=== PATIENT | female | born 1955 | race Caucasian/White ===

== ENCOUNTER 2020-03-11 06:01 | Day surgery (SDC) | payer OTHER ==
[~2020-03-11] VITALS: Ht 157.5 cm; Wt 82.7 kg
[~2020-03-11 06:01] MED LIST: CYCLOPENTOLATE HCL 1% 2 ML OPHTHALMIC SOLUTION ONE; KETOROLAC TROMETHAMINE 0.5% 5 ML OPHTHALMIC SOLUTION ONE; MOXIFLOXACIN HCL 0.5% 3 ML OPHTHALMIC SOLUTION ONE; PHENYLEPHRINE HCL 2.5% 2 ML OPHTHALMIC SOLUTION ONE; RINGERS SOLUTION,LACTATED 500 ML IV ONE; TETRACAINE HCL/PF 0.5% 4 ML OPHTHALMIC SOLUTION OD ONE; TROPICAMIDE 1% 2 ML OPHTHALMIC SOLUTION ONE
[2020-03-11] MEDS ORDERED: FentaNYL CITRATE-PF 100 MCG/2 ML VIAL IVP ONE (06:02)
[2020-03-11] MEDS ORDERED: MIDAZOLAM HCL 2 MG/2 ML VIAL IVP ONE (06:02)
[2020-03-11] MEDS: MOXIFLOXACIN HCL 0.5% 3 ML OPHTHALMIC SOLUTION OD SCH ×3 (06:56→07:11)
[2020-03-11] MEDS: TROPICAMIDE 1% 2 ML OPHTHALMIC SOLUTION OD SCH ×3 (06:56→07:11)
[2020-03-11] MEDS: CYCLOPENTOLATE HCL 1% 2 ML OPHTHALMIC SOLUTION OD SCH ×3 (06:56→07:11)
[2020-03-11] MEDS: PHENYLEPHRINE HCL 2.5% 2 ML OPHTHALMIC SOLUTION OD SCH ×3 (06:56→07:11)
[2020-03-11] MEDS: KETOROLAC TROMETHAMINE 0.5% 5 ML OPHTHALMIC SOLUTION OD SCH ×3 (06:57→07:11)
[2020-03-11] MEDS ORDERED: EPINEPHrine 1:1,000 [1 MG/ML] AMP ONE (06:59)
[2020-03-11] MEDS ORDERED: BALANCED SALT 15 ML OPHTHALMIC IRRIG.SOLN ONE (07:00)
[2020-03-11] MEDS ORDERED: LIDOCAINE/PF 1% 2 ML VIAL ONE ×2 (07:00→07:31)
[2020-03-11] MEDS ORDERED: POVIDONE-IODINE 10% 15 ML SOLUTION UD ONE (07:00)
[2020-03-11] MEDS ORDERED: LOSA50TA37 PO (07:02)
[2020-03-11] MEDS ORDERED: CALC-789 PO (07:02)
[2020-03-11] MEDS ORDERED: ASPI-1111 PO (07:02)
[2020-03-11] MEDS ORDERED: HYDR-1475 PO (07:02)
[2020-03-11] MEDS ORDERED: AMLO-258 PO (07:02)
[2020-03-11 07:05] LABS: GLUCOMETER DEV NAME(LOC) SDS.; GLUCOSE,POINT OF CARE 114 MG/DL (70-110)
[2020-03-11] MEDS ORDERED: PrednisoLONE ACETATE 1% 5 ML OPHTHALMIC SUSPENSION ONE (07:08)
[2020-03-11] MEDS ORDERED: TETRACAINE HCL/PF 0.5% 4 ML OPHTHALMIC SOLUTION ONE (07:09)
[2020-03-11] MEDS ORDERED: BUPIVACAINE HCL/PF 0.75% 10 ML VIAL ONE (07:25)
[2020-03-11] MEDS ORDERED: PHENYLEPHRINE IO ONE (07:45)
[2020-03-11] MEDS ORDERED: KETOROLAC IO ONE (07:45)
== END 2020-03-11 10:05 | disposition home or self-care (01) ==
LOC: SURGERY 06:01
PROVIDERS: ATTEND Ophthalmology Glaucoma Specialist
DX: H25.11 Age-related nuclear cataract, right eye (principal); Z11.59 Encounter for screening for other viral diseases; M19.90 Unspecified osteoarthritis, unspecified site; I10 Essential (primary) hypertension; E78.00 Pure hypercholesterolemia, unspecified
CPT/HCPCS: 66984; 82962; 87635; 93005; J0171; J2250; J3010; J3490; J7120; V2632